=== PATIENT | female | born 1950 | race Caucasian/White ===

== ENCOUNTER 2020-08-23 08:25 | Emergency (ER) | payer OTHER ==
[~2020-08-23] VITALS: Ht 165.1 cm; Wt 81.3 kg
--- NOTE | 2020-08-23 08:44 | NUR ---
BLOOD IN URINE, BURNING WITH URINATION. ONSET LAST NIGHT. PT WITH STEADY GAIT TO BATHROOM AND TO BED. POSTIONED TO COMFORT. ATTACHED TO MONITORS. MARILOU. TIAGO. LUCIANA PROVIDED. JESE SHEFFIELD TO BEDSIDE FOR EVALUAITON.
[2020-08-23 08:59] LABS: MICROSCOPIC INDICATED
--- NOTE | 2020-08-23 09:03 | NUR ---
Palomo be in ED - 08/23/20 at 0905 by ANTONIA AFTER REPORT CALLED TO [facility] PT TRANSFERRED TO ICU 6 WITH RN AND TECH ON MONITOR
[2020-08-23 09:11] LABS: BASOPHILS % (AUTO) 1 % (0-1); EOSINOPHILS % (AUTO) 3 % (1-7); LYMPHOCYTES % (AUTO) 26 % (22-44); MEAN CORPUSCULAR HGB CONC 33.4 g/dL (32.4-35.8); MEAN PLATELET VOLUME 7.5 fL (7.4-10.4); MONOCYTES % (AUTO) 9 % (2-9); NEUTROPHILS % (AUTO) 62 % (42-75); PLATELET COUNT 278 x10^3/uL (130-400); RED BLOOD COUNT 4.48 x10^6/uL (3.82-5.3); RED CELL DISTRIBUTION WIDTH 12.9 % (9.6-15.2)
[2020-08-23 09:15] LABS: MD NO
[2020-08-23] MEDS ORDERED: SODIUM CHLORIDE FLUSH 10ML SYR IVF ONE (09:30)
[2020-08-23 09:32] LABS: ALANINE AMINOTRANSFERASE 16 U/L (12-78); ALBUMIN 3.8 g/dL (3.4-5.0); CALCIUM 8.9 mg/dL (8.5-10.1); CHLORIDE 111 mmol/L (98-107); CREATININE 0.59 mg/dL (0.55-1.02)
[2020-08-23 09:35] LABS: ALKALINE PHOSPHATASE 73 U/L (45-117); BILIRUBIN,TOTAL 0.5 mg/dL (0.2-1.0); TOTAL PROTEIN 6.9 g/dL (6.4-8.2)
--- NOTE | 2020-08-23 09:40 | NUR ---
PT RESTING IN BED. EMT TO BEDSIDE TO START IV. PT TO GO TO CT. VSS. NADN.
[2020-08-23 09:45] LABS: ANION GAP 5 mmol/L (5-15)
--- NOTE | 2020-08-23 10:36 | NUR ---
PT TO CT.
--- NOTE | 2020-08-23 10:58 | NUR ---
PT RESTING IN BED. AWAITING CT TO BE READ. VSS. ORDOÑEZ.
--- NOTE | 2020-08-23 11:42 | NUR ---
PT RESTING IN BED. VSS. ORDOÑEZ. UROLOGY CONSULT.
[2020-08-23 12:33] VITALS: BP 135/72
--- NOTE | 2020-08-23 12:37 | NUR ---
AWAITING UROLOGY. PT SITTING UP. NADCayla. VSS. PER OKAY TO FEED. MEAL TRAY ORDERED, PT PROVIDED WITH WATER AND SNACKS.
[2020-08-23] MEDS ORDERED: OMNIPAQUE 350 MG/ML, 100ML BOTTLE ONE (12:54)
--- NOTE | 2020-08-23 13:21 | NUR ---
Patient given discharge instructions and they have confirmed that they understand the instructions. Patient ambulatory with steady gait. NAD, all questions answered appropriately, denies additional needs at this time. No personal belongings left in room after discharge.
== END 2020-08-23 13:22 | disposition home or self-care (01) ==
LOC: ED 09:08
DX: R31.0 Gross hematuria (principal); Z90.49 Acquired absence of other specified parts of digestive tract
CPT/HCPCS: 36415; 74177; 80053; 81001; 85025; 87086; 99285; Q9967